=== PATIENT | female | born 1950 | race Caucasian/White ===

== ENCOUNTER 2020-08-06 04:57 | Day surgery (SDC) | payer OTHER ==
[2020-08-02 13:09] VITALS: BMI 26.4
[2020-08-06 08:38] VITALS: TEMP 97
[2020-08-06 09:17] VITALS: BP 111/59; PULSE 68
== END 2020-08-06 09:31 | disposition home or self-care (01) ==
LOC: JASU-ENDO 04:57
PROVIDERS: ATTEND Internal Medicine Gastroenterology
PROC: 0DJD8ZZ Inspection of Lower Intestinal Tract, Via Natural or Artificial Opening Endoscopic (ICD-10-PCS; principal; 2020-08-06 08:00)
DX: Z12.11 Encounter for screening for malignant neoplasm of colon (principal); K57.30 Diverticulosis of large intestine without perforation or abscess without bleeding; K62.5 Hemorrhage of anus and rectum

== ENCOUNTER 2024-07-19 14:15 | Emergency (ER) | payer OTHER, MEDICARE ==
[2024-07-19 14:30] VITALS: BP 148/68; PULSE 80; RESP 18; TEMP 97.3; BMI 26.4
== END 2024-07-19 15:25 | disposition home or self-care (01) ==
LOC: FER 14:15
DX: S42.294A Other nondisplaced fracture of upper end of right humerus, initial encounter for closed fracture (principal); V48.4XXA Person boarding or alighting a car injured in noncollision transport accident, initial encounter
CPT/HCPCS: 73030-TC-RT-FY; 73060-TC-RT-FY; 99283-25

== ENCOUNTER 2024-07-25 06:00 | Day surgery (SDC) | payer OTHER, MEDICARE ==
[2024-07-23 15:00] VITALS: BMI 27.3
[2024-07-25] MEDS ORDERED: VANCOMYCIN 1,000 MG VIAL (RESTRICTED TO ID ONLY) ONE (07:24)
[2024-07-25] MEDS ORDERED: TRANEXAMIC ACID 1000 MG/10 ML VIAL ONE (07:25)
[2024-07-25] MEDS ORDERED: MIDAZOLAM HCL 2 MG/2 ML SINGLE DOSE VIAL ONE (07:28)
[2024-07-25] MEDS ORDERED: SUCCINYLCHOLINE CHLORIDE 200 MG/10 ML SYRINGE ONE (07:28)
[2024-07-25] MEDS ORDERED: PROPOFOL 20 ML ONE ×3 (07:28→11:28)
[2024-07-25] MEDS ORDERED: DEXAMETHASONE SOD PHOSPHATE 10 MG/1 ML VIAL ONE (07:31)
[2024-07-25] MEDS ORDERED: ROPIVACAINE HCL/PF 100 MG/20 ML VIAL ONE (07:32)
[2024-07-25] MEDS ORDERED: ePHEDrine SULFATE 50 MG/1 ML AMPULE ONE ×2 (08:21→10:21)
[2024-07-25] MEDS: TRANEXAMIC ACID 1000 MG/10 ML VIAL IVPB ONE ×2 (10:45)
[2024-07-25] MEDS: VANCOMYCIN 1,000 MG VIAL (RESTRICTED TO ID ONLY) IVPB ONE ×2 (10:58)
[2024-07-25] MEDS ORDERED: MAG HYDROX/AL HYDROX/SIMETH 30 ML UNIT-DOSE CUP PO PRN (11:23)
[2024-07-25] MEDS ORDERED: ONDANSETRON 4 MG/2 ML VIAL IVPUSH PRN (11:56)
[2024-07-25] MEDS ORDERED: LACTATED RINGERS SOLUTION 1,000 ML IV SCH (12:00)
[2024-07-25] MEDS: ACETAMINOPHEN 1000 MG/100 ML BAG IVPB ONE (12:00)
[2024-07-25] MEDS: CEFAZOLIN 2 GM/D5W 2 GRAM/50 ML ML IVPB SCH (16:39)
[2024-07-25] MEDS: LACTATED RINGERS SOLUTION 1,000 ML IV SCH (17:01)
[2024-07-25] MEDS: FLUCONAZOLE 150 MG TABLET PO ONE (18:51)
[2024-07-25] MEDS: ACETAMINOPHEN 1000 MG/100 ML BAG IVPB SCH (20:22)
[2024-07-25] MEDS: SENNOSIDES/DOCUSATE COMBO (SENNA PLUS) TABLET (UD) PO SCH (21:19)
[2024-07-25] MEDS: VANCOMYCIN/WATER FOR INJ (PEG) 1 GM/200 ML BAG IVPB ONE (21:19)
[2024-07-25] MEDS: amLODIPine BESYLATE 5 MG TABLET (FP) PO SCH (21:19)
[2024-07-25] MEDS: traMADol HCL 50 MG TABLET PO PRN (22:35)
[2024-07-25 22:53] VITALS: RESP 19
[2024-07-26] MEDS: traMADol HCL 50 MG TABLET PO PRN (03:23)
[2024-07-26] MEDS: ONDANSETRON 4 MG/2 ML VIAL IVPUSH PRN (06:24)
[2024-07-26] MEDS: morphine SULFATE 4 MG/ML VIAL SQ PRN (06:34)
[2024-07-26 09:27] LABS: HEMATOCRIT 35.7 % (34.1-44.9); HEMOGLOBIN 11.5 g/dL (11.2-15.7); MCHC 32.2 g/dl (32.2-35.5); MEAN CELL VOLUME 88.6 fl (79.4-94.8); MEAN PLT VOLUME 10.4 fl (9.4-12.3); PLATELET COUNT 216 x10^3/uL (182-369); RDW 15.2 % (12.4-16.6)
[2024-07-26] MEDS: MULTIVITAMINS (DAILY MVI) TABLET (FP) PO SCH (09:32)
[2024-07-26] MEDS: PANTOPRAZOLE 40 MG TABLET PO SCH (09:32)
[2024-07-26] MEDS: ASPIRIN 325 MG ENTERIC COATED TABLET (FP) PO SCH (09:32)
[2024-07-26 09:40] LABS: CALCIUM 9.8 mg/dl (8.5-10.1); CREATININE 0.5 mg/dl (0.6-1.3); POTASSIUM 3.9 mmol/L (3.5-5.1)
[2024-07-26 10:17] VITALS: BP 139/69; PULSE 74; TEMP 98.1
== END 2024-07-26 10:54 | disposition home or self-care (01) ==
LOC: FASUSAT 06:00 → FM/S 12:41 → FASUSAT 07-26 10:54
PROVIDERS: ATTEND Orthopaedic Surgery
PROC: 0RRJ00Z Replacement of Right Shoulder Joint with Reverse Ball and Socket Synthetic Substitute, Open Approach (ICD-10-PCS; principal; 2024-07-25 08:46)
DX: S42.201A Unspecified fracture of upper end of right humerus, initial encounter for closed fracture (principal); M19.011 Primary osteoarthritis, right shoulder; M75.21 Bicipital tendinitis, right shoulder; X58.XXXA Exposure to other specified factors, initial encounter; Y93.9 Activity, unspecified; Y92.9 Unspecified place or not applicable
CPT/HCPCS: 23472; C1776; 36415; 73030-TC-RT-FY; 80048; 85027; 88304-TC; 88305-TC; 88311-TC; 94760; 97116-GP; 97161-GP; C1713; J0131; J1100